=== PATIENT | female | born 1950 | race Caucasian/White ===

== ENCOUNTER 2016-11-08 12:50 | Inpatient (IN) | payer MEDICARE, OTHER ==
[~2016-11-08] VITALS: Ht 170.2 cm; Wt 75.0 kg
[~2016-11-08 12:50] MED LIST: ALL220TA PO; ALLE60TA PO; TAMS0.4C67 PO
[2016-11-08 12:55] VITALS: BP 117/57; PULSE 77; RESP 14; TEMP 98.2; O2SAT 96
--- NOTE | 2016-11-08 13:50 | PD ---
HPI Chief Complaint: GI Complaint Time Seen by Provider: 13:50 Travel History International Travel<30 days: No Contact w/Intl Traveler<30days: No Traveled to known affect area: No History of Present Illness HPI 66-year-old female with history of Crohn's disease, ileostomy in place for 30 years, presents to emergency department for evaluation of abdominal pain and cramping. She believes that she has an obstruction. Patient states she has had these in the past. She states last evening she began to have nausea and had abdominal cramping only. Her ileostomy stopped putting out stool last evening. She has however had some gas through the ileostomy. She has been nauseous throughout the day with 2 episodes of vomiting. Emesis is nonbloody and without coffee grounds. No fever or chills. No urinary symptoms. No chest tightness. No difficulty breathing. No other symptoms to report. PFSH Past Medical History Asthma: No Blood Disorders: No Anxiety: No Depression: No Heart Rhythm Problems: No Cancer: No Cardiovascular Problems: No High Cholesterol: No Chemotherapy: No Chest Pain: No Congestive Heart Failure: No COPD: No Diabetes: No Diminished Hearing: No Endocrine: No Gastrointestinal Disorders: Yes (crohns) Genitourinary: No Immune Disorder: No Musculoskeletal: No Neurologic: No Psychiatric: No Reproductive: No Respiratory: No Radiation Therapy: No Sleep Apnea: No Thyroid Disease: No ?: Not : 1 Para: 1 Past Surgical History Abdominal Surgery: Yes (colon removed, ileostomy) Section: Yes Genitourinary Surgery: Yes (kidney removed) Social History Alcohol Use: No Tobacco Use: No Substance Use: No Allergies-Medications (Allergen,Severity, Reaction): Coded Allergies: No Known Allergies (Unverified , 12/16/12) Reported Meds & Prescriptions Reported Meds & Active Scripts Active Reported Bhavya Allergy (Fexofenadine HCl) 60 Mg Tab 60 Mg PO PRN Review of Systems Except as stated in HPI: all other systems reviewed are Neg Physical Exam Narrative GENERAL: Well-nourished female patient, sitting in the chair, in no acute distress SKIN: Warm and dry. Multiple large scars on the abdomen HEAD: Atraumatic. Normocephalic. EYES: Pupils equal and round. No scleral icterus. No injection or drainage. ENT: No nasal bleeding or discharge. Mucous membranes pink and moist. NECK: Trachea midline. No JVD. CARDIOVASCULAR: Regular rate and rhythm. No murmur appreciated. RESPIRATORY: No accessory muscle use. Clear to auscultation. Breath sounds equal bilaterally. GASTROINTESTINAL: Abdomen soft, nondistended. Slight tenderness elicited in the epigastrium and right upper quadrant. There is a right sided ileostomy in place. No stool noted.. Hepatic and splenic margins not palpable. MUSCULOSKELETAL: No obvious deformities. No clubbing. No cyanosis. No edema. NEUROLOGICAL: Awake and alert. No obvious cranial nerve deficits. Motor grossly within normal limits. Normal speech. PSYCHIATRIC: Appropriate mood and affect; insight and judgment normal. Data Data Last Documented VS Vital Signs Date Time Temp Pulse Resp B/P Pulse Ox O2 Delivery O2 Flow Rate FiO2 11/08/16 19:09 70 16 117/70 99 Room Air 11/08/16 12:55 98.2 Orders Complete Blood Count With Diff (11/08/16 13:49) Comprehensive Metabolic Panel (11/08/16 13:49) Lipase (11/08/16 13:49) Prothrombin Time / Inr (Pt) (11/08/16 13:49) Act Partial Throm Time (Ptt) (11/08/16 13:49) Urinalysis - C+S If Indicated (11/08/16 13:49) Abdomen, Flat & Upright (11/08/16 ) Electrocardiogram (11/08/16 13:49) Urine Culture (11/08/16 13:55) Ct Abd/Pel W/O Iv Contrast (11/08/16 ) Ceftriaxone Inj (Rocephin Inj) (11/08/16 17:30) Ondansetron Inj (Zofran Inj) (11/08/16 17:30) Sodium Chlor 0.9% 1000 Ml Inj (Ns 1000 M (11/08/16 17:30) Labs Laboratory Tests Test 11/08/16 11/08/16 13:55 13:57 Urine Color YELLOW Urine Turbidity HAZY Urine pH 5.5 Urine Specific [place] 1.030 Urine Protein 30 mg/dL Urine Glucose (UA) NEG mg/dL Urine Ketones NEG mg/dL Urine Occult Blood NEG Urine Nitrite NEG Urine Bilirubin NEG Urine Urobilinogen LESS THAN 2.0 MG/DL Urine Leukocyte Esterase SMALL Urine RBC 2 /hpf Urine WBC 13 /hpf Urine Squamous Epithelial 2 /hpf Cells Urine Hyaline Casts 7 /lpf Urine Mucus FEW /lpf Microscopic Urinalysis Comment CULTURE INDICATED White Blood Count 7.3 TH/MM3 Red Blood Count 4.67 MIL/MM3 Hemoglobin 13.9 GM/DL Hematocrit 41.4 % Mean Corpuscular Volume 88.7 FL Mean Corpuscular Hemoglobin 29.7 PG Mean Corpuscular Hemoglobin 33.5 % Concent Red Cell Distribution Width 13.6 % Platelet Count 245 TH/MM3 Mean Platelet Volume 7.4 FL Neutrophils (%) (Auto) 80.0 % Lymphocytes (%) (Auto) 15.3 % Monocytes (%) (Auto) 4.5 % Eosinophils (%) (Auto) 0.0 % Basophils (%) (Auto) 0.2 % Neutrophils # (Auto) 5.8 TH/MM3 Lymphocytes # (Auto) 1.1 TH/MM3 Monocytes # (Auto) 0.3 TH/MM3 Eosinophils # (Auto) 0.0 TH/MM3 Basophils # (Auto) 0.0 TH/MM3 CBC Comment DIFF FINAL Differential Comment Prothrombin Time 10.3 SEC Prothromb Time International 0.9 RATIO Ratio Activated Partial 25.0 SEC Thromboplast Time Sodium Level 138 MEQ/L Potassium Level 3.9 MEQ/L Chloride Level 106 MEQ/L Carbon Dioxide Level 24.6 MEQ/L Anion Gap 7 MEQ/L Blood Urea Nitrogen 23 MG/DL Creatinine 1.42 MG/DL Estimat Glomerular Filtration 37 ML/MIN Rate Random Glucose 100 MG/DL Calcium Level 9.0 MG/DL Total Bilirubin 0.5 MG/DL Aspartate Amino Transf 32 U/L (AST/SGOT) Alanine Aminotransferase 38 U/L (ALT/SGPT) Alkaline Phosphatase 107 U/L Total Protein 8.0 GM/DL Albumin 4.0 GM/DL Lipase 206 U/L [facility] Medical Decision Making Medical Screen Exam Complete: Yes Emergency Medical Condition: Yes Medical Record Reviewed: Yes Differential Diagnosis Ileus versus obstruction versus constipation versus dehydration versus Crohn's Narrative Course 66-year-old female presents to the emergency department for evaluation. Patient appears without distress. Workup was initiated in triage. Once a medical bed becomes available, patient will be transferred and care assumed by the provider. Condition: Stable NasLeiaYuliyaalvaro ARCHIBALD Nov 08, 2016 13:50
[2016-11-08 14:33] LABS: BLOOD, URINE NEG (NEG); COMMENT (UR) CULTURE INDICATED; CULTURE IF INDICATED CULTURE INDICATED; GLUCOSE,URINE NEG (NEG); HYALINE CAST, URINE 7 /lpf (RARE); KETONE, URINE NEG (NEG); MUCUS URINE FEW /lpf (OCC); NITRITE,URINE NEG (NEG); PH, URINE 5.5 (5.0-8.5); SQUAMOUS EPITHELIAL CELL URINE 2 /hpf (0-5); URINE COLOR YELLOW (YELLW/STRAW)
[2016-11-08 14:34] LABS: AUTOMATED NEUTROPHIL # 5.8 TH/MM3 (1.8-7.7); BASOPHIL % 0.2 % (0.0-2.0); HEMATOCRIT 41.4 % (35.0-46.0); HEMO FLAGS DIFF FINAL; LYMPH % 15.3 % (9.0-44.0); LYMPHOCYTE # 1.1 TH/MM3 (1.0-4.8); MEAN CELL VOLUME 88.7 FL (80.0-100.0); MEAN CORPUSCULAR HEMOGLOBIN 29.7 PG (27.0-34.0); MEAN CORPUSCULAR HGB CONC 33.5 % (32.0-36.0); MONO % 4.5 % (0.0-8.0); PLATELET COUNT 245 TH/MM3 (150-450); RED BLOOD COUNT 4.67 MIL/MM3 (4.00-5.30); RED CELL DISTRIBUTION WIDTH 13.6 % (11.6-17.2); WHITE BLOOD COUNT 7.3 TH/MM3 (4.0-11.0)
[2016-11-08 14:48] LABS: INTERNATIONAL NORMALIZED RATIO 0.9 RATIO; PROTHROMBIN TIME - PATIENT 10.3 SEC (9.8-11.6)
[2016-11-08 14:49] LABS: ALT (GPT) 38 U/L (10-53); ANION GAP 7 MEQ/L (5-15); AST (GOT) 32 U/L (15-37); BICARBONATE 24.6 MEQ/L (21.0-32.0); BLOOD UREA NITROGEN 23 MG/DL (7-18); CHLORIDE 106 MEQ/L (98-107); GLOMERULAR FILTRATION RATE 37 ML/MIN (>89); POTASSIUM 3.9 MEQ/L (3.5-5.1); SODIUM (NA) 138 MEQ/L (136-145)
[2016-11-08 14:50] LABS: ALKALINE PHOSPHATASE 107 U/L (45-117); TOTAL BILIRUBIN ADULT 0.5 MG/DL (0.2-1.0)
--- NOTE | 2016-11-08 15:33 | RADRPT ---
EXAM DATE/TIME: 11/08/2016 14:47 [facility] COMPARISON: CT ABDOMEN & PELVIS W/O CONTRAST, August 23, 2015, 9:12. INDICATIONS : Abdomen pain and vomiting. MEDICAL HISTORY : Crohn's disease. SURGICAL HISTORY : Illeostomy, Right kidney removed 2003, colon removed. ENCOUNTER: Initial ACUITY: 1 day PAIN SCORE: 7/10 LOCATION: Bilateral Abdomen. FINDINGS: Supine and upright views of the abdomen demonstrate mildly dilated air-filled small bowel in the cent ral abdomen measuring up to 3.8 cm. However, there is a right lower quadrant ileostomy present. Uprig ht image demonstrates no free intraperitoneal air or definite air-fluid levels. There multiple clips in the left upper quadrant related to prior left kidney surgery. No organomegaly or abnormal calcific ations are seen. Visualized lung bases are clear and no acute osseous abnormality is identified. CONCLUSION: Mildly dilated small bowel in the central abdomen measuring up to 3.8 cm. This is typically an abnorm al finding. However, patients with chronic ileostomies can sometime have mildly distended small bowel . This could therefore represent a normal variant. Depending on the clinical setting consider followu p imaging to confirm stability or perform CT of the abdomen and pelvis for further evaluation. Alan Mackey MD on November 08, 2016 at 15:28 Board Certified Radiologist. This report was verified electronically.
[2016-11-08 17:21] VITALS: BP 120/72; PULSE 76; RESP 20; O2SAT 98
--- NOTE | 2016-11-08 17:22 | PD ---
HPI Chief Complaint: GI Complaint Time Seen by Provider: 17:16 Travel History International Travel<30 days: No Contact w/Intl Traveler<30days: No Traveled to known affect area: No History of Present Illness HPI 66yo F with PMH of crohn's disease with ileostomy 1983 presents to the ED with c /o abdominal pain since yesterday and NBNB vomiting today. Pt states abdominal pain is around the ileostomy and she had not had any bowel movement since yesterday. Had some flatus. 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 Denies any fever, chest pain, sob , urinary complaints or vaginal bleeding/discharge or weakness or numbness. PFSH Past Medical History Asthma: No Blood Disorders: No Anxiety: No Depression: No Heart Rhythm Problems: No Cancer: No Cardiovascular Problems: No High Cholesterol: No Chemotherapy: No Chest Pain: No Congestive Heart Failure: No COPD: No Diabetes: No Diminished Hearing: No Endocrine: No Gastrointestinal Disorders: Yes (crohns) Genitourinary: No Immune Disorder: No Musculoskeletal: No Neurologic: No Psychiatric: No Reproductive: No Respiratory: No Radiation Therapy: No Sleep Apnea: No Thyroid Disease: No ?: Not : 1 Para: 1 Past Surgical History Abdominal Surgery: Yes (colon removed, ileostomy) Section: Yes Genitourinary Surgery: Yes (kidney removed) Social History Alcohol Use: No Tobacco Use: No Substance Use: No Allergies-Medications (Allergen,Severity, Reaction): Coded Allergies: No Known Allergies (Unverified , 12/16/12) Reported Meds & Prescriptions Reported Meds & Active Scripts Active Reported Bhavya Allergy (Fexofenadine HCl) 60 Mg Tab 60 Mg PO PRN Review of Systems Except as stated in HPI: all other systems reviewed are Neg Physical Exam Narrative GENERAL: 66yo F not in distress. SKIN: Warm and dry. HEAD: Atraumatic. Normocephalic. EYES: Pupils equal and round. No scleral icterus. No injection or drainage. ENT: No nasal bleeding or discharge. Mucous membranes pink and moist. NECK: Trachea midline. No JVD. CARDIOVASCULAR: Regular rate and rhythm. No murmur appreciated. RESPIRATORY: No accessory muscle use. Clear to auscultation. Breath sounds equal bilaterally. GASTROINTESTINAL: Abdomen soft, Mild ttp around ileostomy bag. No rebound tenderness or guarding. MUSCULOSKELETAL: No obvious deformities. No clubbing. No cyanosis. No edema. NEUROLOGICAL: Awake and alert. No obvious cranial nerve deficits. Motor grossly within normal limits. Normal speech. PSYCHIATRIC: Appropriate mood and affect; insight and judgment normal. Data Data Last Documented VS Vital Signs Date Time Temp Pulse Resp B/P Pulse Ox O2 Delivery O2 Flow Rate FiO2 11/08/16 19:09 70 16 117/70 99 Room Air 11/08/16 12:55 98.2 Orders Complete Blood Count With Diff (11/08/16 13:49) Comprehensive Metabolic Panel (11/08/16 13:49) Lipase (11/08/16 13:49) Prothrombin Time / Inr (Pt) (11/08/16 13:49) Act Partial Throm Time (Ptt) (11/08/16 13:49) Urinalysis - C+S If Indicated (11/08/16 13:49) Abdomen, Flat & Upright (11/08/16 ) Electrocardiogram (11/08/16 13:49) Urine Culture (11/08/16 13:55) Ct Abd/Pel W/O Iv Contrast (11/08/16 ) Ceftriaxone Inj (Rocephin Inj) (11/08/16 17:30) Ondansetron Inj (Zofran Inj) (11/08/16 17:30) Sodium Chlor 0.9% 1000 Ml Inj (Ns 1000 M (11/08/16 17:30) Sodium Chlor 0.9% 1000 Ml Inj (Ns 1000 M (11/08/16 19:45) Abdomen, Kub Only (11/09/16 06:00) Consult Gastroenterology (11/08/16 ) Consult General Surgery (11/08/16 ) Labs Laboratory Tests Test 11/08/16 11/08/16 13:55 13:57 Urine Color YELLOW Urine Turbidity HAZY Urine pH 5.5 Urine Specific [place] 1.030 Urine Protein 30 mg/dL Urine Glucose (UA) NEG mg/dL Urine Ketones NEG mg/dL Urine Occult Blood NEG Urine Nitrite NEG Urine Bilirubin NEG Urine Urobilinogen LESS THAN 2.0 MG/DL Urine Leukocyte Esterase SMALL Urine RBC 2 /hpf Urine WBC 13 /hpf Urine Squamous Epithelial 2 /hpf Cells Urine Hyaline Casts 7 /lpf Urine Mucus FEW /lpf Microscopic Urinalysis Comment CULTURE INDICATED White Blood Count 7.3 TH/MM3 Red Blood Count 4.67 MIL/MM3 Hemoglobin 13.9 GM/DL Hematocrit 41.4 % Mean Corpuscular Volume 88.7 FL Mean Corpuscular Hemoglobin 29.7 PG Mean Corpuscular Hemoglobin 33.5 % Concent Red Cell Distribution Width 13.6 % Platelet Count 245 TH/MM3 Mean Platelet Volume 7.4 FL Neutrophils (%) (Auto) 80.0 % Lymphocytes (%) (Auto) 15.3 % Monocytes (%) (Auto) 4.5 % Eosinophils (%) (Auto) 0.0 % Basophils (%) (Auto) 0.2 % Neutrophils # (Auto) 5.8 TH/MM3 Lymphocytes # (Auto) 1.1 TH/MM3 Monocytes # (Auto) 0.3 TH/MM3 Eosinophils # (Auto) 0.0 TH/MM3 Basophils # (Auto) 0.0 TH/MM3 CBC Comment DIFF FINAL Differential Comment Prothrombin Time 10.3 SEC Prothromb Time International 0.9 RATIO Ratio Activated Partial 25.0 SEC Thromboplast Time Sodium Level 138 MEQ/L Potassium Level 3.9 MEQ/L Chloride Level 106 MEQ/L Carbon Dioxide Level 24.6 MEQ/L Anion Gap 7 MEQ/L Blood Urea Nitrogen 23 MG/DL Creatinine 1.42 MG/DL Estimat Glomerular Filtration 37 ML/MIN Rate Random Glucose 100 MG/DL Calcium Level 9.0 MG/DL Total Bilirubin 0.5 MG/DL Aspartate Amino Transf 32 U/L (AST/SGOT) Alanine Aminotransferase 38 U/L (ALT/SGPT) Alkaline Phosphatase 107 U/L Total Protein 8.0 GM/DL Albumin 4.0 GM/DL Lipase 206 U/L [facility] Medical Decision Making Medical Screen Exam Complete: Yes Emergency Medical Condition: Yes Differential Diagnosis Obstruction vs. colitis vs. ileus vs. fistula Narrative Course 66yo F with PMH of crohn's disease s/p ileostomy 1984 here with abdominal pain near right mid abdomen since last night. Pt has been feeling nauseous and had NBNB vomiting today. Last episode of vomit is 10am today. Last time she drank was around 12pm when she had a few sips of water. Pt had not had bowel movement in her bag since last night but has been having flatus. Labs reviewed , no leukocytosis. BUN/creatinine elevated at 23/1.42. Pt given NS IVF and zofran 4mg IV. UA showed small leukocyte and pt given ceftriaxone 1mg IV. Xray abdomen showed mildly dilated small bowel in central abdomen measuring 3.8cm. Patients with chronic ileostomies can have mildly distended small bowel so recommended CTa/p for further evaluation. CTa/p showed diffusely and mildly dilated small bowel extending to level of ostomy. No obstructing mass or lesion observed. Cholelithiasis with distended gallbladder but no gallbladder wall thickening or pericholecystic fluid. Dr. Hinojosa (surgery) evaluated the patient and recommended admission to medicine service with consult to GI and Surgery. Pt is to be NPO. Diagnosis Primary Impression: Small bowel obstruction Admitting Information Admitting Physician Requests: Admit Condition: Stable ValleJeaneth DO Nov 08, 2016 17:22
[2016-11-08] MEDS ORDERED: ALLE60TA PO (17:23)
[2016-11-08] MEDS ORDERED: ONDANSETRON HCL 4 MG/2 ML VIAL IV PUSH ONE (17:30)
[2016-11-08] MEDS ORDERED: cefTRIAXone INJ 1,000 MG in SODIUM CHLORIDE 0.9% INJ 100 ML IV ONE (17:30)
[2016-11-08] MEDS ORDERED: SODIUM CHLOR 0.9% 1000 ML INJ 1,000 ML IV ONE (17:30)
[2016-11-08 18:15] VITALS: BP 121/63; PULSE 70; RESP 18; O2SAT 97
--- NOTE | 2016-11-08 19:08 | RADRPT ---
EXAM DATE/TIME: 11/08/2016 18:35 [facility] COMPARISON: CT ABDOMEN & PELVIS W/O CONTRAST, August 23, 2015, 9:12. INDICATIONS : Abdomen pain with nausea and vomiting. Blockage of ileostomy. ORAL CONTRAST: No oral contrast ingested. RADIATION DOSE: 13.20 CTDIvol (mGy) MEDICAL HISTORY : Crohn's disease. SURGICAL HISTORY : Nephrectomy, left. section.Ileostomy ENCOUNTER: Initial ACUITY: 1 day PAIN SCALE: 6/10 LOCATION: Bilateral abdomen TECHNIQUE: Volumetric scanning of the abdomen and pelvis was performed. Using automated exposure control and ad justment of the mA and/or kV according to patient size, radiation dose was kept as low as reasonably achievable to obtain optimal diagnostic quality images. FINDINGS: LOWER LUNGS: The visualized lower lungs are clear. A tiny hiatal hernia. LIVER: Homogeneous density without lesion. There is no dilation of the biliary tree. Multiple small calcifi ed gallstones are seen layering within a well-distended gallbladder. No gallbladder wall thickening o r pericholecystic fluid. SPLEEN: Normal size without lesion. PANCREAS: Within normal limits. KIDNEYS: The left kidney is surgically absent. A 1 mm nonobstructing stone is seen involving the right kidney. ADRENAL GLANDS: Within normal limits. VASCULAR: There is no aortic aneurysm. BOWEL/MESENTERY: There has been complete colectomy with low anterior resection. A right lower quadrant ileostomy is no braydon. The small bowel is mildly and diffusely dilated. This extends to the level of the ostomy. No foc al transition point observed. No free air or free fluid. No obstructing mass or lesion. ABDOMINAL WALL: Within normal limits. RETROPERITONEUM: There is no lymphadenopathy. BLADDER: No wall thickening or mass. REPRODUCTIVE: Within normal limits. INGUINAL: There is no lymphadenopathy or hernia. MUSCULOSKELETAL: Within normal limits for patient age. CONCLUSION: 1. Prior complete colectomy and low anterior resection. 2. Diffusely and mildly dilated small bowel extending to the level of the ostomy. No obstructing mass or lesion observed. 3. Tiny hiatal hernia. 4. Cholelithiasis with a distended gallbladder but no gallbladder wall thickening or pericholecystic fluid. The gallbladder distention could relate to an n.p.o. status. 5. 1 mm nonobstructing right renal calculus. 6. Prior left nephrectomy. Jefry Whipple Jr., MD on November 08, 2016 at 19:01 Board Certified Radiologist. This report was verified electronically.
[2016-11-08 19:09] VITALS: BP 117/70; PULSE 70; RESP 16; O2SAT 99
[2016-11-08] MEDS ORDERED: SODIUM CHLOR 0.9% 1000 ML INJ 1,000 ML IV SCH (19:45)
[2016-11-08] MEDS ORDERED: NALOXONE HCL 0.4 MG/ML AMP IV PRN (20:00)
[2016-11-08] MEDS ORDERED: ONDANSETRON HCL 4 MG/2 ML VIAL IVP PRN (20:00)
[2016-11-08] MEDS ORDERED: METOCLOPRAMIDE HCL 10 MG/2 ML VIAL IV PUSH PRN (20:00)
[2016-11-08] MEDS ORDERED: SODIUM CHLORIDE 0.9% FLUSH 5 ML FLUSH FLUSH PRN (20:00)
[2016-11-08] MEDS: SODIUM CHLOR 0.9% 1000 ML INJ 1,000 ML IV SCH (20:18)
[2016-11-08] MEDS: SODIUM CHLORIDE 0.9% FLUSH 5 ML FLUSH FLUSH SCH (20:52)
[2016-11-08 21:03] VITALS: BP 103/55; PULSE 67; RESP 16; O2SAT 98
--- NOTE | 2016-11-08 21:21 | MB ---
cc: JUAN CARLOS ALBRIGHT M.D., ANNIE DO DATE OF CONSULTATION: 11/08/2016 REASON FOR CONSULTATION: Bowel obstruction. HISTORY OF PRESENT ILLNESS The patient is a 66-year-old female with a history of Crohn's disease who underwent a rather unconventional treatment with ileostomy followed by total colectomy two years later even though she had no active disease in her colon, according to the patient. The patient had apparently had a diverting ileostomy at the time with an end-ileostomy and then underwent total colectomy when she had peritonitis. It is not clear if she got the peritonitis from her colonic problem, further active Crohn's disease, or some other problem. The patient had an episode of bowel obstruction about three years ago not requiring surgical intervention. The patient reports that she had ileostomy that stopped putting out yesterday evening, had nausea and abdominal cramping. She did have some vomiting this morning but this stopped after 10:30 a.m. The patient did have intubation of the ileostomy in 2002 in preparation for living related donor, kidney transplant as the donor, and was found to have some active Crohn's disease in her ileum. She has elected not to undergo any treatment as she was concerned about side effects from the drugs. She also had expressed concern since she only has one kidney. 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 PAST MEDICAL HISTORY: No history of asthma, anxiety, depression, cardiac problems, congestive failure, COPD, musculoskeletal, neurologic or psychiatric problems. No history of sleep apnea. PAST SURGICAL HISTORY: 1. . 2. Ileostomy. 3. Total colectomy. 4. Nephrectomy. SOCIAL HISTORY: She does not drink, smoke or use other substances. ALLERGIES: No known allergies. MEDICATIONS: 1. Bhavya 50 milligrams p.o. p.r.n. REVIEW OF SYSTEMS: Otherwise negative except as indicated above. PHYSICAL EXAMINATION: Reveals a female in no acute distress. VITAL SIGNS: Blood pressure 121/63, pulse 70, respiratory rate 18, 97% sat on room air, temperature 98.2. HEENT: Sclerae anicteric. Pupils reactive. Chest: Clear to auscultation. Cardiac exam reveals regular rate and rhythm. Abdomen is soft and nontender. There is a well-healed midline scar. There is an ileostomy in the right lower quadrant. There is stool in the ileostomy. The undersigned intubated the ileostomy with a finger and K-Y jelly. The fascial opening is extremely tight but I was able to place an index finger below the fascia. There is some stool in the more proximal ileum, but there did not appear to be any impaction. Pulses are present. Extremities: The patient is able to move all four extremities. Neurologic: Exam is nonfocal. LABORATORY VALUES: WBC 7.3, hemoglobin 13.9, hematocrit 41.4. BUN and creatinine are 23 and 1.4 with GFR of 37. The patient has a slight left shift with 80% neutrophils. Urinalysis demonstrates high urine protein and culture is indicated with 13 WBCs. The patient did report when she had Crohn's disease previously she has what sounded like a colovesical fistula. She had constant urine infections. IMAGING STUDIES: CT scan demonstrates gallstones with a distended gallbladder. No gallbladder wall thickening and small bowel mildly and diffusely dilated that extends to the level of the ostomy, there is no focal transition point noted. ASSESSMENT Nausea, vomiting and ileostomy, this is currently functioning. No evidence of small bowel obstruction at this time. I have concern that the patient may have some active Crohn disease that is not being treated. Would recommend medical management, IV fluids, bowel rest for today and would start a diet tomorrow if she does not have any further vomiting. Will follow peripherally as it does not appear that she will need any surgery at this time. Thank you, Dr. Valle, for asking us to see this individual. MD KAREN Stafford/SOPHIE /8:08 PM /9:08 PM SELENA
[2016-11-09] VITALS (7 sets, daily range): BP systolic 95–125; BP diastolic 49–76; PULSE 61–81; RESP 17–20; TEMP 97.8–99.4; O2SAT 94–97
--- NOTE | 2016-11-09 04:48 | HHI.HP ---
[facility] Service [facility] Primary Care Physician Hillary Diaz MD Admission Diagnosis SBO Diagnoses: (1) Small bowel obstruction (2) Crohn's disease Chief Complaint: Ileostomy not working Travel History International Travel<30 Days: No Contact w/Intl Traveler <30 Da: No Traveled to Known Affected Are: No History of Present Illness Mrs. Reich is a 66 year old female with a past medical history of Crohns disease with ileostomy in 1983 and donor nephrectomy presented to the ER on 11/08 complaining of abdominal pain 1 day with vomiting. The patient relates her abdominal pain as occurring around the ileostomy and feeling similar to her prior bowel obstruction. She was seen by Dr. Hinojosa who does not recommend surgical intervention and opines that she does not have a small bowel obstruction. CT abdomen and pelvis without IV contrast shows prior complete colectomy and low anterior resection. Diffusely and mildly dilated small bowel extended to the level of the ostomy. No obstructing mass or lesion observed. Tiny hiatal hernia. Cholelithiasis with a distended gallbladder but no gallbladder wall thickening or pericholecystic fluid. Gallbladder distention might relate to nothing by mouth status. 1 mm nonobstructing right renal calculus. Prior left nephrectomy. CBC is unremarkable. BUN elevated at 23, creatinine elevated at 1.42, estimated GFR 37. Kidney function similar to hospital visit on 09/04/15. Urinalysis slightly abnormal with culture indicated. The patient is seen in her hospital room where she reports that nothing was coming out of her ileostomy stoma for 24 hours. She states she was having some severe pain but denies any vomiting and reports symptoms have resolved and ostomy is currently working with good output. She denies any fever, syncope, chest pain, shortness of breath, blood in stool, dark stool, hematuria, or dysuria. Her last hospitalization for Crohn's disease was in 1985. She denies any history of hypertension, diabetes mellitus, heart problems, breathing problems, liver or kidney problems, seizures, thyroid dysfunction, or cancer. She denies any problems with blood clots such as DVT, PE, or CVA. . Review of Systems Constitutional: DENIES: Fever, Chills Respiratory: DENIES: Cough, Shortness of breath Cardiovascular: DENIES: Chest pain, Palpitations Gastrointestinal: COMPLAINS OF: Abdominal pain, Constipation, DENIES: Black stools, Bloody stools, Nausea, Vomiting Genitourinary: DENIES: Hematuria, Dysuria Neurologic: DENIES: Seizures Past Family Social History Past Medical History Small bowel obstruction 3 years ago Crohns disease with ileostomy in 1983 Donor left nephrectomy 2003 . Past Surgical History Colectomy with Ileostomy in 1983 Donor left nephrectomy 2004 section . Reported Medications Reported Meds & Active Scripts Active Reported Bhavya Allergy (Fexofenadine HCl) 60 Mg Tab 60 Mg PO PRN . Allergies: Coded Allergies: No Known Allergies (Unverified , 12/16/12) Active Ordered Medications Current Medications Ceftriaxone Sodium/Sodium Chloride (Rocephin Inj/NS Inj) 100 ml @ 200 mls/hr ONCE ONCE IV Last administered on 11/08/16 17:34; Start 11/08/16 at 17:30; Stop 11/08/16 at 17:59; Status DC Ondansetron HCl 4 mg 4 mg ONCE ONCE IV PUSH Last administered on 11/08/16 17: 34; Start 11/08/16 at 17:30; Stop 11/08/16 at 17:31; Status DC Sodium Chloride 1,000 ml @ 999 mls/hr BOLUS ONCE IV Last administered on 11/08 17:34; Start 11/08/16 at 17:30; Stop 11/08/16 at 18:30; Status DC Sodium Chloride 1,000 ml @ 125 mls/hr Q8H IV Last administered on 11/08/16 19 :45; Start 11/08/16 at 19:45; Stop 11/08/16 at 19:56; Status DC Sodium Chloride (NS 1000 ml Inj) 1,000 ml @ 100 mls/hr Q10H IV Last administered on 11/08/16 20:18; Start 11/08/16 at 19:53 IV Flush (NS Flush) 2 ml UNSCH PRN FLUSH FLUSH AFTER USING IV ACCESS; Start at 20:00 IV Flush (NS Flush) 2 ml BID FLUSH ; Start 11/08/16 at 21:00 Ondansetron HCl (Zofran Inj) 4 mg Q6H PRN IVP NAUSEA OR VOMITING; Start at 20:00 Metoclopramide HCl (Reglan Inj) 5 mg Q6H PRN IV PUSH NAUSEA OR VOMITING Last administered on 11/08/16t 20:25; Start 11/08/16 at 20:00 Naloxone HCl (Narcan Inj) 0.4 mg UNSCH PRN IV SEE LABEL COMMENTS; Start at 20:00 . Family History Mother with history of COPD age 82, father age 86, cause uncertain Mother, brother, and sister all had irregular heart rhythms . 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 Physical Exam Vital Signs Vital Signs Date Time Temp Pulse Resp B/P Pulse Ox O2 Delivery O2 Flow Rate FiO2 11/09/16 04:00 98.4 74 18 110/54 96 11/09/16 00:00 99.4 81 17 125/59 96 11/08/16 21:03 67 16 103/55 98 Room Air 11/08/16 19:09 70 16 117/70 99 Room Air 11/08/16 18:15 70 18 121/63 97 Room Air 11/08/16 17:21 76 20 120/72 98 Room Air 11/08/16 12:55 98.2 77 14 117/57 96 Room Air Physical Exam GENERAL: This is a well-nourished, well-developed patient, in no apparent distress. SKIN: No rashes, ecchymoses or lesions. Cool and dry. HEAD: Atraumatic. Normocephalic. EYES: No scleral icterus. No injection or drainage. ENT: Nose without bleeding, purulent drainage. NECK: Trachea midline. No JVD or lymphadenopathy. CARDIOVASCULAR: Regular rate and rhythm without murmurs, gallops, or rubs. RESPIRATORY: Clear to auscultation. Breath sounds equal bilaterally. No wheezes , rales, or rhonchi. GASTROINTESTINAL: Abdomen soft, non-tender, nondistended. No guarding. Right mid abdomen with ileostomy bag - not clear - unable to visualize stool in bag. MUSCULOSKELETAL: Extremities without clubbing, cyanosis, or edema. No calf tenderness. NEUROLOGICAL: Awake and alert. Motor and sensory grossly within normal limits. Normal speech. . . Laboratory Laboratory Tests Test 11/08/16 11/08/16 13:55 13:57 Urine Color YELLOW Urine Turbidity HAZY Urine pH 5.5 Urine Specific [place] 1.030 Urine Protein 30 Urine Glucose (UA) NEG Urine Ketones NEG Urine Occult Blood NEG Urine Nitrite NEG Urine Bilirubin NEG Urine Urobilinogen LESS THAN 2.0 Urine Leukocyte Esterase SMALL Urine RBC 2 Urine WBC 13 Urine Squamous Epithelial 2 Cells Urine Hyaline Casts 7 Urine Mucus FEW Microscopic Urinalysis Comment CULTURE INDICATED White Blood Count 7.3 Red Blood Count 4.67 Hemoglobin 13.9 Hematocrit 41.4 Mean Corpuscular Volume 88.7 Mean Corpuscular Hemoglobin 29.7 Mean Corpuscular Hemoglobin 33.5 Concent Red Cell Distribution Width 13.6 Platelet Count 245 Mean Platelet Volume 7.4 Neutrophils (%) (Auto) 80.0 Lymphocytes (%) (Auto) 15.3 Monocytes (%) (Auto) 4.5 Eosinophils (%) (Auto) 0.0 Basophils (%) (Auto) 0.2 Neutrophils # (Auto) 5.8 Lymphocytes # (Auto) 1.1 Monocytes # (Auto) 0.3 Eosinophils # (Auto) 0.0 Basophils # (Auto) 0.0 CBC Comment DIFF FINAL Differential Comment Prothrombin Time 10.3 Prothromb Time International 0.9 Ratio Activated Partial 25.0 Thromboplast Time Sodium Level 138 Potassium Level 3.9 Chloride Level 106 Carbon Dioxide Level 24.6 Anion Gap 7 Blood Urea Nitrogen 23 Creatinine 1.42 Estimat Glomerular Filtration 37 Rate Random Glucose 100 Calcium Level 9.0 Total Bilirubin 0.5 Aspartate Amino Transf 32 (AST/SGOT) Alanine Aminotransferase 38 (ALT/SGPT) Alkaline Phosphatase 107 Total Protein 8.0 Albumin 4.0 Lipase 206 Date/Time Procedure Status Source Growth 11/08/16 13:55 Urine Culture Received Urine Clean Catch Pending Result Diagram: 11/08/16 1357 11/08/16 1357 Imaging Last Impressions Abdomen/Pelvis CT 11/08/16 0000 Signed Impressions: Service Date/Time: Tuesday, November 08, 2016 18:35 - CONCLUSION: 1. Prior complete colectomy and low anterior resection. 2. Diffusely and mildly dilated small bowel extending to the level of the ostomy. No obstructing mass or lesion observed. 3. Tiny hiatal hernia. 4. Cholelithiasis with a distended gallbladder but no gallbladder wall thickening or pericholecystic fluid. The gallbladder distention could relate to an n.p.o. status. 5. 1 mm nonobstructing right renal calculus. 6. Prior left nephrectomy. Jefry Whipple Jr., MD Abdomen X-Ray 11/08/16 0000 Signed Impressions: Service Date/Time: Tuesday, November 08, 2016 14:47 - CONCLUSION: Mildly dilated small bowel in the central abdomen measuring up to 3.8 cm. This is typically an abnormal finding. However, patients with chronic ileostomies can sometime have mildly distended small bowel. This could therefore represent a normal variant. Depending on the clinical setting consider followup imaging to confirm stability or perform CT of the abdomen and pelvis for further evaluation. Alan Mackey MD . Assessment and Plan Problem List: (1) Abdominal pain ICD Code: R10.9 Status: Acute (2) Small bowel obstruction ICD Code: K56.69 Status: Acute (3) Crohn's disease ICD Code: K50.90 Status: Chronic (4) Solitary right kidney ICD Code: Q60.2 Status: Chronic (5) Impaired renal function ICD Code: N28.9 Status: Chronic Assessment and Plan Mrs. Reich is a 66 year old female with a past medical history of Crohns disease with ileostomy in 1983 and donor nephrectomy presented to the ER on 11/08 complaining of abdominal pain 1 day with vomiting. Testing was concerning for SBO. Abdominal pain: SBO vs untreated Crohns disease - Patient was evaluated by Dr. Hinojosa who indicates there is no evidence of small bowel obstruction at this time but he expresses concern that there may be some active Crohns disease that is not being treated. - Consult GI - Nothing by mouth - IV fluids normal saline at 100 cc per hour - Bowel rest and now with clear liquid diet start in a.m. - VS q4h Impaired renal function related to prior donor nephrectomy - Recheck BMP in a.m. - Follow trends in renal indices - Avoid nephrotoxins DVT prophylaxis - SCDs Written by Mayelin Gamble, acting as scribe for Dr. Owens on 11/09/16 at 03:30 .All or portions of this note were transcribed by scribe [Maeylin Gamble]. I, Dr. Wilrfido Owens personally performed the history, physical exam, and medical decision making; and confirmed the accuracy of the information in the transcribed note. Authenticated by Dr. Wilfrido Owens on 11/09/16 at 0330 Discussed Condition With ER physician and patient . Physician Certification 2 Midnight Certification Type: Admission for Inpatient Services Order for Inpatient Services The services are ordered in accordance with Medicare regulations or non- Medicare payer requirements, as applicable. In the case of services not specified as inpatient-only, they are appropriately provided as inpatient services in accordance with the 2-midnight benchmark. Estimated LOS (days): 3 days is the estimated time the patient will need to remain in the hospital, assuming treatment plan goals are met and no additional complications. Post-Hospital Plan: Home Mayelin Gamble Nov 09, 2016 04:48 Wilfrido Owens MD Dec 21, 2016 07:30
[2016-11-09 06:47] LABS: AUTOMATED NEUTROPHIL # 2.4 TH/MM3 (1.8-7.7); BASOPHIL % 0.4 % (0.0-2.0); EOSINOPHIL # 0.1 TH/MM3 (0-0.4); EOSINOPHIL % 2.3 % (0.0-4.0); HEMATOCRIT 35.2 % (35.0-46.0); HEMO FLAGS DIFF FINAL; LYMPH % 26.9 % (9.0-44.0); LYMPHOCYTE # 1.1 TH/MM3 (1.0-4.8); MEAN CELL VOLUME 88.9 FL (80.0-100.0); MEAN CORPUSCULAR HEMOGLOBIN 29.4 PG (27.0-34.0); MEAN CORPUSCULAR HGB CONC 33.1 % (32.0-36.0); MONO % 9.7 % (0.0-8.0); NEUT % 60.7 % (16.0-70.0); PLATELET COUNT 209 TH/MM3 (150-450); RED BLOOD COUNT 3.96 MIL/MM3 (4.00-5.30); RED CELL DISTRIBUTION WIDTH 13.3 % (11.6-17.2); WHITE BLOOD COUNT 3.9 TH/MM3 (4.0-11.0)
[2016-11-09 07:25] LABS: BICARBONATE 24.1 MEQ/L (21.0-32.0); POTASSIUM 3.7 MEQ/L (3.5-5.1)
--- NOTE | 2016-11-09 08:27 | RADRPT ---
EXAM DATE/TIME: 11/09/2016 08:05 [facility] COMPARISON: CT ABDOMEN & PELVIS W/O CONTRAST, November 08, 2016, 18:35. INDICATIONS : Partial small bowel obstruction. MEDICAL HISTORY : Crohn's disease SURGICAL HISTORY : Nephrectomy, left. section. Ileostomy ENCOUNTER: Subsequent ACUITY: 2 days PAIN SCORE: 0/10 LOCATION: entire abdomen FINDINGS: There is no radiographic contrast in the abdomen. A colostomy is seen in the right lower quadrant. Surgical clips are seen in the epigastrium. CONCLUSION: There is no radiographic contrast evident. Adria Hodgson MD FACR on November 09, 2016 at 8:15 Board Certified Radiologist. This report was verified electronically.
[2016-11-09] MEDS: SODIUM CHLORIDE 0.9% FLUSH 5 ML FLUSH FLUSH SCH ×2 (09:00→20:33)
[2016-11-09] MEDS: ACETAMINOPHEN 325 MG TAB PO PRN ×2 (10:52→22:14)
[2016-11-09] MEDS ORDERED: LACTULOSE SYRUP 20 GM/30 ML CUP PO ONE ×2 (11:00→21:00)
--- NOTE | 2016-11-09 13:10 | PD.CONS ---
HPI History of Present Illness This is a 66 year old female patient with a long history of Crohn's disease. She reports that she was originally diagnosed in the early 1970s with regional enteritis and later told that she had Crohn's. She reports many years ago she was treated with steroids sulfasalazine and underwent a complete colectomy with ileostomy back in 1983. She reports that prior to that she was having a lot of issues with abscesses and fistulas and required multiple abdominal surgeries. She reports that after she had her colectomy, she was doing very well and has not been on any medications for quite some time. She is not followed by a pipe changer. She does report that she does tend to have intermittent "bowel obstructions" with nausea, vomiting, abdominal pain, and decreased output from her ileostomy. She reports that these are usually very mild and resolve on their own and does not require medical treatment. She reports that she last was seen by a pipe changer back in 2003 prior to donating her kidney to her . She reports that she had an ileoscopy at that time and was told that she had active disease with ulcerations and her small bowel. 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 This latest episode of symptoms began about 3 days ago. She reports that she started having nausea and vomiting with mid abdominal cramping on Monday. She reports that she was unable to keep anything down and that she noticed she was not having any output from her ileostomy. She denies any fevers or chills. She denies any weight loss. She has not seen any blood mixed within her stools. Of note she did have a bowel movement yesterday and she reports that this was her normal consistency. She is not having any abdominal distention. She is now longer having any nausea or vomiting or abdominal pain. She came to the ER and was evaluated with a CT scan without IV contrast of the abdomen and pelvis and this revealed a prior complete colectomy and low anterior resection, diffusely and mildly dilated small bowel extending to the level of the ostomy. No obstructing mass or lesion is observed, tiny hiatal hernia, cholelithiasis with a distended gallbladder but no gallbladder wall thickening or pericholecystic fluid, gallbladder distention could relates an nothing by mouth status, 1 mm nonobstructing right renal calculus, prior left nephrectomy. She did not have any leukocytosis. She was evaluated by general surgery and they did not feel that she had a bowel obstruction. He recommended GI follow-up for evaluation of Crohn's disease. (Marilyn Garcia) [facility] Past Medical History Small bowel obstruction 3 years ago Crohns disease with ileostomy in 1983 Donor left nephrectomy 2003 Past Surgical History Colectomy with Ileostomy in 1983 Donor left nephrectomy 2004 section Colonoscopy Ileoscopy (Marilyn Garcia) Coded Allergies: No Known Allergies (Unverified , 12/16/12) Medications Allergies Coded Allergies Type Severity Reaction Last Updated Verified No Known Allergies 12/16/12 No Active Scripts Medications Dose Route/Sig Days Date Category Bhavya Allergy (Fexofenadine HCl) 60 Mg Tab 60 Mg PO PRN 11/08/16 Reported Family History Mother with history of COPD age 82, father age 86, cause uncertain Mother, brother, and sister all had irregular heart rhythms . 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 (Marilyn Garcia) Review of Systems Constitutional: COMPLAINS OF: Fatigue, DENIES: Weight loss, Change in appetite Respiratory: DENIES: Cough, Shortness of breath Cardiovascular: DENIES: Chest pain Gastrointestinal: COMPLAINS OF: Abdominal pain, Constipation, Nausea, Vomiting , DENIES: Black stools, Bloody stools, Swelling of Abdomen, Hematemesis Musculoskeletal: DENIES: Joint pain Integumentary: DENIES: Abnormal pigmentation Hematologic/lymphatic: DENIES: Bruising Neurologic: DENIES: Headache Psychiatric: DENIES: Confusion (Marilyn Garcia) GI Exam Vitals I&O Vital Signs Date Time Temp Pulse Resp B/P Pulse Ox O2 Delivery O2 Flow Rate FiO2 11/09/16 11:52 98.5 67 20 108/58 96 11/09/16 08:00 97.9 62 18 95/49 94 11/09/16 04:00 98.4 74 18 110/54 96 11/09/16 00:00 99.4 81 17 125/59 96 11/08/16 21:03 67 16 103/55 98 Room Air 11/08/16 19:09 70 16 117/70 99 Room Air 11/08/16 18:15 70 18 121/63 97 Room Air 11/08/16 17:21 76 20 120/72 98 Room Air I/O 11/08/16 11/08/16 11/08/16 11/09/16 11/09/16 11/09/16 07:00 15:00 23:00 07:00 15:00 23:00 Intake Total 0 ml 896 ml 0 ml Output Total 300 ml Balance 0 ml 596 ml 0 ml Intake Oral 0 ml 0 ml 0 ml IV Total 896 ml Output Urine Total 300 ml # Voids 1 # Bowel Movements 0 0 Imaging Last Impressions Abdomen/Pelvis CT 11/08/16 0000 Signed Impressions: Service Date/Time: Tuesday, November 08, 2016 18:35 - CONCLUSION: 1. Prior complete colectomy and low anterior resection. 2. Diffusely and mildly dilated small bowel extending to the level of the ostomy. No obstructing mass or lesion observed. 3. Tiny hiatal hernia. 4. Cholelithiasis with a distended gallbladder but no gallbladder wall thickening or pericholecystic fluid. The gallbladder distention could relate to an n.p.o. status. 5. 1 mm nonobstructing right renal calculus. 6. Prior left nephrectomy. Jefry Whipple Jr., MD Abdomen X-Ray 11/08/16 0000 Signed Impressions: Service Date/Time: Tuesday, November 08, 2016 14:47 - CONCLUSION: Mildly dilated small bowel in the central abdomen measuring up to 3.8 cm. This is typically an abnormal finding. However, patients with chronic ileostomies can sometime have mildly distended small bowel. This could therefore represent a normal variant. Depending on the clinical setting consider followup imaging to confirm stability or perform CT of the abdomen and pelvis for further evaluation. Alan Mackey MD Laboratory Test 11/08/16 11/08/16 11/09/16 13:55 13:57 05:10 Urine Color YELLOW Urine Turbidity HAZY Urine pH 5.5 Urine Specific [place] 1.030 Urine Protein 30 mg/dL Urine Glucose (UA) NEG mg/dL Urine Ketones NEG mg/dL Urine Occult Blood NEG Urine Nitrite NEG Urine Bilirubin NEG Urine Urobilinogen LESS THAN 2.0 MG/DL Urine Leukocyte Esterase SMALL Urine RBC 2 /hpf Urine WBC 13 /hpf Urine Squamous Epithelial 2 /hpf Cells Urine Hyaline Casts 7 /lpf Urine Mucus FEW /lpf Microscopic Urinalysis Comment CULTURE INDICATED White Blood Count 7.3 TH/MM3 3.9 TH/MM3 Red Blood Count 4.67 MIL/MM3 3.96 MIL/MM3 Hemoglobin 13.9 GM/DL 11.6 GM/DL Hematocrit 41.4 % 35.2 % Mean Corpuscular Volume 88.7 FL 88.9 FL Mean Corpuscular Hemoglobin 29.7 PG 29.4 PG Mean Corpuscular Hemoglobin 33.5 % 33.1 % Concent Red Cell Distribution Width 13.6 % 13.3 % Platelet Count 245 TH/MM3 209 TH/MM3 Mean Platelet Volume 7.4 FL 7.5 FL Neutrophils (%) (Auto) 80.0 % 60.7 % Lymphocytes (%) (Auto) 15.3 % 26.9 % Monocytes (%) (Auto) 4.5 % 9.7 % Eosinophils (%) (Auto) 0.0 % 2.3 % Basophils (%) (Auto) 0.2 % 0.4 % Neutrophils # (Auto) 5.8 TH/MM3 2.4 TH/MM3 Lymphocytes # (Auto) 1.1 TH/MM3 1.1 TH/MM3 Monocytes # (Auto) 0.3 TH/MM3 0.4 TH/MM3 Eosinophils # (Auto) 0.0 TH/MM3 0.1 TH/MM3 Basophils # (Auto) 0.0 TH/MM3 0.0 TH/MM3 CBC Comment DIFF FINAL DIFF FINAL Differential Comment Prothrombin Time 10.3 SEC Prothromb Time International 0.9 RATIO Ratio Activated Partial 25.0 SEC Thromboplast Time Sodium Level 138 MEQ/L 143 MEQ/L Potassium Level 3.9 MEQ/L 3.7 MEQ/L Chloride Level 106 MEQ/L 112 MEQ/L Carbon Dioxide Level 24.6 MEQ/L 24.1 MEQ/L Anion Gap 7 MEQ/L 7 MEQ/L Blood Urea Nitrogen 23 MG/DL 20 MG/DL Creatinine 1.42 MG/DL 1.30 MG/DL Estimat Glomerular Filtration 37 ML/MIN 41 ML/MIN Rate Random Glucose 100 MG/DL 94 MG/DL Calcium Level 9.0 MG/DL 8.5 MG/DL Total Bilirubin 0.5 MG/DL Aspartate Amino Transf 32 U/L (AST/SGOT) Alanine Aminotransferase 38 U/L (ALT/SGPT) Alkaline Phosphatase 107 U/L Total Protein 8.0 GM/DL Albumin 4.0 GM/DL Lipase 206 U/L Erythrocyte Sedimentation Rate 25 mm/hr Date/Time Procedure Status Source Growth 11/08/16 13:55 Urine Culture Received Urine Clean Catch Pending Physical Examination HEENT: Normocephalic; atraumatic; no jaundice. CHEST: CTA CARDIAC: RRR ABDOMEN: Soft, NONdistended, nontender; no hepatosplenomegaly; ileostomy with small amount liquid stool EXTREMITIES: No clubbing, cyanosis, or edema. SKIN: Normal; no rash; no jaundice. CERTIFIED MEDICAL ASST: No focal deficits; alert and oriented times three. (Marilyn Garcia SUSTAINABILITY MANAGER) Assessment and Plan Plan ASSESSMENT: - N/V, Abdominal pain with abnormal imaging. Pt with long hx of Crohns, s/p multiple surgeries for resection/abscess/fistulas, s/p complete colectomy with ileostomy 1983. She has not been on medications since that time. She is not followed by GI and reports that she last was evaluated with ileoscopy back in 2003, at which time she was told that she had active disease with ulcerations but she did not follow up as she did not want to go back on medications for her Crohn's. She reports that she's had intermittent symptoms with n/v, pain, decreased output that have resolved on her own. This episode started on Monday. It has improved and she has moved her bowels and no longer having pain or n/v. CT scan without IV contrast of the abdomen and pelvis and this revealed a prior complete colectomy and low anterior resection, diffusely and mildly dilated small bowel extending to the level of the ostomy. No obstructing mass or lesion is observed, tiny hiatal hernia, cholelithiasis with a distended gallbladder but no gallbladder wall thickening or pericholecystic fluid, gallbladder distention could relates an nothing by mouth status, 1 mm nonobstructing right renal calculus, prior left nephrectomy. She did not have any leukocytosis. She was evaluated by general surgery and they did not feel that she had a bowel obstruction. NPO. - Crohns disease, not on current tx. S/P total colectomy in 1983. Last ileoscopy 2003. PLAN: - Plan for EGD with ileoscopy in a.m. - Obtain consents - Clear liquid - Nothing by mouth after midnight - Solu-Medrol 40 mg IV daily - Protonix 40mg IV daily - Sedimentation rate - CBC, BMP in a.m. - Supportive care - Further recommendations to follow based on results of above - Pt seen and examined by Dr. Rucker and myself and this note is written on her behalf (Marilyn Garcia) Physician Comments seen, examined' agree with above (Loulou Rucker MD) Marilyn Garcia Nov 09, 2016 13:10 Loulou Rucker MD Nov 09, 2016 19:36
[2016-11-09] MEDS: SODIUM CHLOR 0.9% 1000 ML INJ 1,000 ML IV SCH (17:37)
[2016-11-09] MEDS ORDERED: METOPROLOL TARTRATE 25 MG TAB PO PRN (18:15)
[2016-11-09] MEDS: SODIUM CHLORID 0.9% 500 ML IV SCH (18:15)
[2016-11-09] MEDS ORDERED: INSULIN HUMAN REGULAR 1,000 UNITS/10 ML VIAL SQ PRN (18:15)
[2016-11-09] MEDS: LACTATED RINGER'S 1000 ML IV SCH (18:15)
--- NOTE | 2016-11-09 22:18 | HHI.PR ---
Subjective Subjective Notes Feels ok today; no emesis or nausea. Objective Vitals/I&O Vital Signs Date Time Temp Pulse Resp B/P Pulse Ox O2 Delivery O2 Flow Rate FiO2 11/09/16 20:00 98.6 63 18 112/76 97 11/08/16 21:03 Room Air Labs Laboratory Tests Test 11/09/16 11/09/16 05:10 11:50 White Blood Count 3.9 Red Blood Count 3.96 Hemoglobin 11.6 Hematocrit 35.2 Mean Corpuscular Volume 88.9 Mean Corpuscular Hemoglobin 29.4 Mean Corpuscular Hemoglobin 33.1 Concent Red Cell Distribution Width 13.3 Platelet Count 209 Mean Platelet Volume 7.5 Neutrophils (%) (Auto) 60.7 Lymphocytes (%) (Auto) 26.9 Monocytes (%) (Auto) 9.7 Eosinophils (%) (Auto) 2.3 Basophils (%) (Auto) 0.4 Neutrophils # (Auto) 2.4 Lymphocytes # (Auto) 1.1 Monocytes # (Auto) 0.4 Eosinophils # (Auto) 0.1 Basophils # (Auto) 0.0 CBC Comment DIFF FINAL Differential Comment Erythrocyte Sedimentation Rate 25 Sodium Level 143 Potassium Level 3.7 Chloride Level 112 Carbon Dioxide Level 24.1 Anion Gap 7 Blood Urea Nitrogen 20 Creatinine 1.30 Estimat Glomerular Filtration 41 Rate Random Glucose 94 Calcium Level 8.5 Nasal Screen MRSA (PCR) NEGATIVE Date/Time Procedure Status Source Growth 11/08/16 13:55 Urine Culture - Preliminary Resulted Urine Clean Catch 10-50,000 CFU/ML MIXED GRAM POSITIVE ... Lungs: Clear Abdomen: Non-distended, Non-tender A/P Assessment and Plan Crohn's dz without obstruction; lactulose working. Plan: GI svc to perform endoscopy Robinson Hinojosa MD Nov 09, 2016 22:18
[2016-11-10] VITALS (8 sets, daily range): BP systolic 103–125; BP diastolic 55–73; PULSE 61–70; RESP 16–20; TEMP 96.9–98.6; O2SAT 95–97
[2016-11-10] MEDS: SODIUM CHLOR 0.9% 1000 ML INJ 1,000 ML IV SCH ×3 (01:53→21:53)
[2016-11-10 04:39] LABS: AUTOMATED NEUTROPHIL # 1.6 TH/MM3 (1.8-7.7); BASOPHIL % 0.4 % (0.0-2.0); EOSINOPHIL # 0.2 TH/MM3 (0-0.4); EOSINOPHIL % 6.3 % (0.0-4.0); HEMATOCRIT 32.4 % (35.0-46.0); HEMO FLAGS DIFF FINAL; LYMPH % 35.6 % (9.0-44.0); LYMPHOCYTE # 1.2 TH/MM3 (1.0-4.8); MEAN CELL VOLUME 88.5 FL (80.0-100.0); MEAN CORPUSCULAR HGB CONC 33.9 % (32.0-36.0); NEUT % 47.7 % (16.0-70.0); PLATELET COUNT 178 TH/MM3 (150-450); RED BLOOD COUNT 3.66 MIL/MM3 (4.00-5.30); RED CELL DISTRIBUTION WIDTH 13.7 % (11.6-17.2); WHITE BLOOD COUNT 3.3 TH/MM3 (4.0-11.0)
[2016-11-10 05:05] LABS: BICARBONATE 25.7 MEQ/L (21.0-32.0); POTASSIUM 3.8 MEQ/L (3.5-5.1)
[2016-11-10] MEDS: SODIUM CHLORID 0.9% 500 ML IV SCH (07:25)
[2016-11-10] MEDS: SODIUM CHLORIDE 0.9% FLUSH 5 ML FLUSH FLUSH SCH ×2 (07:25→19:59)
--- NOTE | 2016-11-10 11:45 | HHI.PR ---
Subjective Remarks Follow-up abdominal pain, chronic kidney disease. Patient states that she feels better. Going for EGD/ileoscopy today. Now passing stool through ileostomy. Abdominal pain improved. Objective Vitals Vital Signs Date Time Temp Pulse Resp B/P Pulse Ox O2 Delivery O2 Flow Rate FiO2 11/10/16 08:00 96.9 67 18 108/73 96 11/10/16 04:00 98.6 65 16 104/55 96 11/10/16 00:00 97.6 61 17 116/56 96 11/09/16 23:14 18 11/09/16 20:00 98.6 63 18 112/76 97 11/09/16 19:51 61 11/09/16 16:00 97.8 67 20 115/62 96 11/09/16 11:52 98.5 67 20 108/58 96 I/O 11/09/16 11/09/16 11/09/16 11/10/16 11/10/16 11/10/16 07:00 15:00 23:00 07:00 15:00 23:00 Intake Total 896 ml 900 ml 570 ml 737 ml Output Total 300 ml 550 ml 0 ml Balance 596 ml 350 ml 570 ml 737 ml Intake Oral 0 ml 0 ml 240 ml 0 ml IV Total 896 ml 900 ml 330 ml 737 ml Output Urine Total 300 ml 550 ml Stool Total 0 ml # Voids 2 2 # Bowel Movements 0 0 0 0 Result Diagram: 11/10/16 0425 11/10/16 0425 Imaging Last Impressions Abdomen X-Ray 11/09/16 0600 Signed Impressions: Service Date/Time: Wednesday, November 09, 2016 08:05 - CONCLUSION: There is no radiographic contrast evident. Adria Hodgson MD FACR Abdomen/Pelvis CT 11/08/16 0000 Signed Impressions: Service Date/Time: Tuesday, November 08, 2016 18:35 - CONCLUSION: 1. Prior complete colectomy and low anterior resection. 2. Diffusely and mildly dilated small bowel extending to the level of the ostomy. No obstructing mass or lesion observed. 3. Tiny hiatal hernia. 4. Cholelithiasis with a distended gallbladder but no gallbladder wall thickening or pericholecystic fluid. The gallbladder distention could relate to an n.p.o. status. 5. 1 mm nonobstructing right renal calculus. 6. Prior left nephrectomy. Jefry Whipple Jr., MD Objective Remarks General: No acute distress. Heart: Regular rate and rhythm. No murmur. Lungs: Clear to auscultation bilaterally. No wheezes, rales, or rhonchi. Breathing is nonlabored. Abdomen: Soft, nontender, nondistended. Ileostomy. Extremities: No lower extremity edema. Psych: Alert and oriented. Urinary Catheter: No Vascular Central Line Catheter: No A/P Problem List: (1) Abdominal pain ICD Code: R10.9 Status: Acute (2) Small bowel obstruction ICD Code: K56.69 Status: Acute (3) Crohn's disease ICD Code: K50.90 Status: Chronic (4) Solitary right kidney ICD Code: Q60.2 Status: Chronic (5) Impaired renal function ICD Code: N28.9 Status: Chronic Assessment and Plan 1. Abdominal pain: Possibly secondary to untreated Crohn's disease. Appreciate GI and general surgery recommendations. EGD/ileoscopy today per GI. 2. Chronic kidney disease: Patient is status post donor nephrectomy. Monitor BUN and creatinine. Avoid nephrotoxins. 3. DVT prophylaxis: SCDs. Daryl Claire MD Nov 10, 2016 11:45
[2016-11-10] MEDS: LACTATED RINGER'S 1000 ML IV SCH (12:24)
[2016-11-10] MEDS ORDERED: PROPOFOL 200 MG/20 ML AMP IV ONE (15:36)
--- NOTE | 2016-11-10 17:57 | EKG ---
Date Performed: 11/10/2016 Time Performed: 10:25:50 PTAGE: 66 years EKG: SINUS BRADYCARDIA When compared to previous tracing, sinus rate is slightly slower. BORDERL INE ECG PREVIOUS TRACING : 12/16/2012 16.13 DOCTOR: David Hartmann Interpretating Date/Time 11/10/2016 17:56:29
--- NOTE | 2016-11-10 19:24 | HHI.PR ---
Subjective Subjective Notes No pain, nausea, or emesis. Objective Vitals/I&O Vital Signs Date Time Temp Pulse Resp B/P Pulse Ox O2 Delivery O2 Flow Rate FiO2 11/10/16 16:00 98.0 70 18 125/68 95 11/08/16 21:03 Room Air Labs Laboratory Tests Test 11/10/16 04:25 White Blood Count 3.3 Red Blood Count 3.66 Hemoglobin 11.0 Hematocrit 32.4 Mean Corpuscular Volume 88.5 Mean Corpuscular Hemoglobin 30.0 Mean Corpuscular Hemoglobin 33.9 Concent Red Cell Distribution Width 13.7 Platelet Count 178 Mean Platelet Volume 7.3 Neutrophils (%) (Auto) 47.7 Lymphocytes (%) (Auto) 35.6 Monocytes (%) (Auto) 10.0 Eosinophils (%) (Auto) 6.3 Basophils (%) (Auto) 0.4 Neutrophils # (Auto) 1.6 Lymphocytes # (Auto) 1.2 Monocytes # (Auto) 0.3 Eosinophils # (Auto) 0.2 Basophils # (Auto) 0.0 CBC Comment DIFF FINAL Differential Comment Sodium Level 141 Potassium Level 3.8 Chloride Level 109 Carbon Dioxide Level 25.7 Anion Gap 6 Blood Urea Nitrogen 16 Creatinine 1.26 Estimat Glomerular Filtration 42 Rate Random Glucose 88 Calcium Level 8.1 Date/Time Procedure Status Source Growth 11/08/16 13:55 Urine Culture - Final Complete Urine Clean Catch 10-50,000 CFU/ML MIXED GRAM POSITIVE ... Lungs: Clear Abdomen: Non-distended Narrative Exam Ileostomy functioning. A/P Assessment and Plan Crohn's dz; no evidence active disease seen by endoscopy. Plan: Start diet. Will sign off tomorrow if tolerates diet. Robinson Hinojosa MD Nov 10, 2016 19:24
[2016-11-10] MEDS: ACETAMINOPHEN 325 MG TAB PO PRN (22:34)
[2016-11-11] VITALS: BP 100/64; PULSE 70; RESP 18; TEMP 98; O2SAT 98
[2016-11-11 04:00] VITALS: BP 108/70; PULSE 69; RESP 20; TEMP 97.6; O2SAT 96
[2016-11-11 05:34] LABS: AUTOMATED NEUTROPHIL # 1.9 TH/MM3 (1.8-7.7); BASOPHIL % 0.5 % (0.0-2.0); EOSINOPHIL # 0.2 TH/MM3 (0-0.4); EOSINOPHIL % 4.7 % (0.0-4.0); HEMATOCRIT 32.1 % (35.0-46.0); HEMO FLAGS DIFF FINAL; LYMPHOCYTE # 1.1 TH/MM3 (1.0-4.8); MEAN CELL VOLUME 88.5 FL (80.0-100.0); MEAN CORPUSCULAR HEMOGLOBIN 29.8 PG (27.0-34.0); MEAN CORPUSCULAR HGB CONC 33.7 % (32.0-36.0); MONO % 9.1 % (0.0-8.0); NEUT % 54.7 % (16.0-70.0); PLATELET COUNT 185 TH/MM3 (150-450); RED BLOOD COUNT 3.63 MIL/MM3 (4.00-5.30); RED CELL DISTRIBUTION WIDTH 13.6 % (11.6-17.2); WHITE BLOOD COUNT 3.5 TH/MM3 (4.0-11.0)
[2016-11-11 05:55] LABS: BICARBONATE 23.3 MEQ/L (21.0-32.0); POTASSIUM 3.7 MEQ/L (3.5-5.1)
[2016-11-11] MEDS: LACTATED RINGER'S 1000 ML IV SCH (07:51)
[2016-11-11] MEDS: SODIUM CHLORIDE 0.9% FLUSH 5 ML FLUSH FLUSH SCH (07:51)
[2016-11-11] MEDS: SODIUM CHLOR 0.9% 1000 ML INJ 1,000 ML IV SCH (07:51)
[2016-11-11 08:10] VITALS: BP 107/69; PULSE 58; RESP 16; TEMP 97.4; O2SAT 97
--- NOTE | 2016-11-11 09:45 | HHI.PR ---
Subjective Remarks Follow up SBO, CKD. No complaints at this time. Denies abdominal pain, nausea, vomiting. Wants to go home. Objective Vitals Vital Signs Date Time Temp Pulse Resp B/P Pulse Ox O2 Delivery O2 Flow Rate FiO2 11/11/16 08:10 97.4 58 16 107/69 97 11/11/16 04:00 97.6 69 20 108/70 96 11/11/16 00:00 98.0 70 18 100/64 98 11/10/16 23:34 20 11/10/16 21:59 63 11/10/16 20:00 97.8 67 20 103/65 97 11/10/16 16:00 98.0 70 18 125/68 95 11/10/16 15:40 67 16 115/72 97 11/10/16 15:28 69 16 135/58 98 11/10/16 15:20 98.0 67 16 120/65 94 11/10/16 14:18 97.3 68 19 110/72 96 11/10/16 12:00 97.3 68 19 110/72 96 I/O 11/10/16 11/10/16 11/10/16 11/11/16 11/11/16 11/11/16 07:00 15:00 23:00 07:00 15:00 23:00 Intake Total 737 ml 935 ml 1042 ml 1025 ml Output Total 0 ml 500 ml 500 ml Balance 737 ml 935 ml 542 ml 525 ml Intake Oral 0 ml 0 ml 480 ml 240 ml IV Total 737 ml 935 ml 462 ml 785 ml Other 100 ml Output Urine Total 500 ml 500 ml Stool Total 0 ml # Voids 2 2 # Bowel Movements 0 0 0 Result Diagram: 11/11/16 0456 11/11/16 0456 Imaging Last Impressions Abdomen X-Ray 11/09/16 0600 Signed Impressions: Service Date/Time: Wednesday, November 09, 2016 08:05 - CONCLUSION: There is no radiographic contrast evident. Adria Hodgson MD FACR Abdomen/Pelvis CT 11/08/16 0000 Signed Impressions: Service Date/Time: Tuesday, November 08, 2016 18:35 - CONCLUSION: 1. Prior complete colectomy and low anterior resection. 2. Diffusely and mildly dilated small bowel extending to the level of the ostomy. No obstructing mass or lesion observed. 3. Tiny hiatal hernia. 4. Cholelithiasis with a distended gallbladder but no gallbladder wall thickening or pericholecystic fluid. The gallbladder distention could relate to an n.p.o. status. 5. 1 mm nonobstructing right renal calculus. 6. Prior left nephrectomy. Jefry Whipple Jr., MD Objective Remarks General: No acute distress. Heart: Regular rate and rhythm. No murmur. Lungs: Clear to auscultation bilaterally. No wheezes, rales, or rhonchi. Breathing is nonlabored. Abdomen: Soft, nontender, nondistended. Ileostomy. Extremities: No lower extremity edema. Psych: Alert and oriented. 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 Abdominal pain: Secondary to SBO. Appreciate GI and general surgery recommendations. EGD/ileoscopy showed no evidence of active Crohn's disease. Cleared for discharge by general surgery. 2. Chronic kidney disease: Patient is status post donor nephrectomy. Monitor BUN and creatinine. Avoid nephrotoxins. Creatinine trending down. 3. DVT prophylaxis: SCDs. Discharge Planning Discharge home when cleared by GI, possibly later today. Daryl Claire MD Nov 11, 2016 09:45
--- NOTE | 2016-11-11 10:24 | HHI.PR ---
Subjective Subjective Notes Did well with regular dinner last night and breakfast today; no pain or nausea. Objective Vitals/I&O Vital Signs Date Time Temp Pulse Resp B/P Pulse Ox O2 Delivery O2 Flow Rate FiO2 11/11/16 08:10 97.4 58 16 107/69 97 11/08/16 21:03 Room Air Labs Laboratory Tests Test 11/11/16 04:56 White Blood Count 3.5 Red Blood Count 3.63 Hemoglobin 10.8 Hematocrit 32.1 Mean Corpuscular Volume 88.5 Mean Corpuscular Hemoglobin 29.8 Mean Corpuscular Hemoglobin 33.7 Concent Red Cell Distribution Width 13.6 Platelet Count 185 Mean Platelet Volume 7.5 Neutrophils (%) (Auto) 54.7 Lymphocytes (%) (Auto) 31.0 Monocytes (%) (Auto) 9.1 Eosinophils (%) (Auto) 4.7 Basophils (%) (Auto) 0.5 Neutrophils # (Auto) 1.9 Lymphocytes # (Auto) 1.1 Monocytes # (Auto) 0.3 Eosinophils # (Auto) 0.2 Basophils # (Auto) 0.0 CBC Comment DIFF FINAL Differential Comment Sodium Level 141 Potassium Level 3.7 Chloride Level 111 Carbon Dioxide Level 23.3 Anion Gap 7 Blood Urea Nitrogen 16 Creatinine 1.13 Estimat Glomerular Filtration 48 Rate Random Glucose 77 Calcium Level 8.1 Date/Time Procedure Status Source Growth 11/08/16 13:55 Urine Culture - Final Complete Urine Clean Catch 10-50,000 CFU/ML MIXED GRAM POSITIVE ... Lungs: Clear Abdomen: Non-distended, Non-tender Narrative Exam Ileostomy functioning. A/P Assessment and Plan Crohn's dz; no evidence active disease seen by endoscopy. Tolerating diet. Plan: Doing well; ok for D/C from gen surgery stdpt Will sign off Robinson Hinojosa MD Nov 11, 2016 10:24
--- NOTE | 2016-11-11 10:31 | HHI.DCPOC ---
Discharge Care Plan Diagnosis: (1) Crohn's disease (2) Small bowel obstruction (3) Abdominal pain (4) Impaired renal function (5) Solitary right kidney Goals to Promote Your Health * To prevent worsening of your condition and complications * To maintain your health at the optimal level Directions to Meet Your Goals Take your medications as prescribed Follow your dietary instruction Follow activity as directed Keep your appointments as scheduled Take your immunizations and boosters as scheduled If your symptoms worsen call your PCP, if no PCP go to Urgent Care Center or Emergency Room Smoking is Dangerous to Your Health. Avoid second hand smoke Call the 24-hour hour crisis hotline for domestic abuse at Daryl Claire MD Nov 11, 2016 10:31
--- NOTE | 2016-11-11 14:19 | HHI.DS ---
cc: Hillary Diaz MD Discharge Summary Admission Date Nov 08, 2016 at 19:54 Discharge Date: Nov 11, 2016 Admitting Diagnosis SBO (1) Abdominal pain ICD Code: R10.9 (2) Small bowel obstruction ICD Code: K56.69 (3) Crohn's disease ICD Code: K50.90 (4) Solitary right kidney ICD Code: Q60.2 (5) Impaired renal function ICD Code: N28.9 Procedures 11/10/16 EGD, ileoscopy Brief History - From Admission Mrs. Reich is a 66 year old female with a past medical history of Crohns disease with ileostomy in 1983 and donor nephrectomy presented to the ER on 11/08 complaining of abdominal pain 1 day with vomiting. The patient relates her abdominal pain as occurring around the ileostomy and feeling similar to her prior bowel obstruction. She was seen by Dr. Hinojosa who does not recommend surgical intervention and opines that she does not have a small bowel obstruction. CT abdomen and pelvis without IV contrast shows prior complete colectomy and low anterior resection. Diffusely and mildly dilated small bowel extended to the level of the ostomy. No obstructing mass or lesion observed. Tiny hiatal hernia. Cholelithiasis with a distended gallbladder but no gallbladder wall thickening or pericholecystic fluid. Gallbladder distention might relate to nothing by mouth status. 1 mm nonobstructing right renal calculus. Prior left nephrectomy. CBC is unremarkable. BUN elevated at 23, creatinine elevated at 1.42, estimated GFR 37. Kidney function similar to hospital visit on 09/04/15. Urinalysis slightly abnormal with culture indicated. The patient is seen in her hospital room where she reports that nothing was coming out of her ileostomy stoma for 24 hours. She states she was having some severe pain but denies any vomiting and reports symptoms have resolved and ostomy is currently working with good output. She denies any fever, syncope, chest pain, shortness of breath, blood in stool, dark stool, hematuria, or dysuria. Her last hospitalization for Crohn's disease was in 1985. She denies any history of hypertension, diabetes mellitus, heart problems, breathing problems, liver or kidney problems, seizures, thyroid dysfunction, or cancer. She denies any problems with blood clots such as DVT, PE, or CVA. . CBC/BMP: 11/11/16 0456 11/11/16 0456 Significant Findings Laboratory Tests Test 11/09/16 11/10/16 11/11/16 05:10 04:25 04:56 White Blood Count 3.9 TH/MM3 3.3 TH/MM3 3.5 TH/MM3 (4.0-11.0) (4.0-11.0) (4.0-11.0) Red Blood Count 3.96 MIL/MM3 3.66 MIL/MM3 3.63 MIL/MM3 (4.00-5.30) (4.00-5.30) (4.00-5.30) Monocytes (%) (Auto) 9.7 % (0.0-8.0) 10.0 % 9.1 % (0.0-8.0) (0.0-8.0) Chloride Level 112 MEQ/L 109 MEQ/L 111 MEQ/L (98-107) (98-107) (98-107) Blood Urea Nitrogen 20 MG/DL (7-18) Creatinine 1.30 MG/DL 1.26 MG/DL 1.13 MG/DL (0.50-1.00) (0.50-1.00) (0.50-1.00) Estimat Glomerular Filtration 41 ML/MIN (>89) 42 ML/MIN (>89) 48 ML/MIN (>89) Rate Hemoglobin 11.0 GM/DL 10.8 GM/DL (11.6-15.3) (11.6-15.3) Hematocrit 32.4 % 32.1 % (35.0-46.0) (35.0-46.0) Eosinophils (%) (Auto) 6.3 % (0.0-4.0) 4.7 % (0.0-4.0) Neutrophils # (Auto) 1.6 TH/MM3 (1.8-7.7) Calcium Level 8.1 MG/DL 8.1 MG/DL (8.5-10.1) (8.5-10.1) Imaging Last Impressions Abdomen X-Ray 11/09/16 0600 Signed Impressions: Service Date/Time: Wednesday, November 09, 2016 08:05 - CONCLUSION: There is no radiographic contrast evident. Adria Hodgson MD FACR Abdomen/Pelvis CT 11/08/16 0000 Signed Impressions: Service Date/Time: Tuesday, November 08, 2016 18:35 - CONCLUSION: 1. Prior complete colectomy and low anterior resection. 2. Diffusely and mildly dilated small bowel extending to the level of the ostomy. No obstructing mass or lesion observed. 3. Tiny hiatal hernia. 4. Cholelithiasis with a distended gallbladder but no gallbladder wall thickening or pericholecystic fluid. The gallbladder distention could relate to an n.p.o. status. 5. 1 mm nonobstructing right renal calculus. 6. Prior left nephrectomy. Jefry Whipple Jr., MD PE at Discharge General: No acute distress. Heart: Regular rate and rhythm. No murmur. Lungs: Clear to auscultation bilaterally. No wheezes, rales, or rhonchi. Breathing is nonlabored. Abdomen: Soft, nontender, nondistended. Ileostomy. Extremities: No lower extremity edema. Psych: Alert and oriented. Hospital Course The patient was admitted for further evaluation of abdominal pain. She was evaluated by general surgery for possible small bowel obstruction. Gastroenterology was consulted for possible Crohn's disease flare. Patient had EGD and ileoscopy, which were unremarkable. Her symptoms improved. She began passing stool that was normal. She had no bleeding. She was cleared for discharge by gastroenterology and general surgery. She was felt to be stable for discharge home. Pt Condition on Discharge: Stable Discharge Disposition: Discharge Home Discharge Time: <= 30 minutes Discharge Instructions DIET: Follow Instructions for: Heart Healthy Diet Activities you can perform: Regular-No Restrictions Follow up Referrals: Gastroenterology - 1 Week with Loulou Rucker MD PCP Follow-up - 2 Weeks Continued Medications: Fexofenadine (Bhavya Allergy) 60 Mg Tab 60 MG PO prn Allergy Management #60 Ref 0 TAB Daryl Claire MD Nov 11, 2016 14:19
[2016-11-11] MEDS ORDERED: PANT40TA3 PO (15:19)
== END 2016-11-11 15:44 | disposition home or self-care (01) | DRG 389 ==
LOC: NEPC 12:50 → NEDA 19:54 → N07A 22:46
PROVIDERS: ADMIT Family Medicine; ATTEND Family Medicine
PROC: 0DB58ZX Excision of Esophagus, Via Natural or Artificial Opening Endoscopic, Diagnostic (ICD-10-PCS; 2016-11-10)
PROC: 0DB98ZX Excision of Duodenum, Via Natural or Artificial Opening Endoscopic, Diagnostic (ICD-10-PCS; principal; 2016-11-10 15:07)
PROC: 0DB68ZX Excision of Stomach, Via Natural or Artificial Opening Endoscopic, Diagnostic (ICD-10-PCS; 2016-11-10 15:07)
DX: K56.60 Unspecified intestinal obstruction (principal); K50.90 Crohn's disease, unspecified, without complications; N20.0 Calculus of kidney; K29.70 Gastritis, unspecified, without bleeding; K20.9 Esophagitis, unspecified; K44.9 Diaphragmatic hernia without obstruction or gangrene; K80.20 Calculus of gallbladder without cholecystitis without obstruction; Z90.5 Acquired absence of kidney; N18.9 Chronic kidney disease, unspecified
CPT/HCPCS: 74000; 74020; 74176; 80048; 80053; 81001; 83690; 85025; 85610; 85652; 85730; 87086; 87641; 88305; 88312; 93005; 96361; 96365; 96375; J0696; J2405; J2765; J7030

== ENCOUNTER → 2018-02-23 | Outpatient (CLI) | payer MEDICARE, OTHER ==
[~2018-02-23] MED LIST changes: -ALL220TA PO; +PANT40TA3 PO; -TAMS0.4C67 PO
[2018-02-23 11:22] LABS: CHOLESTEROL/ HDL RATIO 2.74 RATIO; DIRECT BILIRUBIN ADULT 0.1 MG/DL (0.0-0.2); HDL CHOLESTEROL 51.8 MG/DL (40.0-60.0); INDIRECT BILIRUBIN 0.4 MG/DL (0.0-0.8); TOTAL BILIRUBIN ADULT 0.5 MG/DL (0.2-1.0); TOTAL PROTEIN 8.2 GM/DL (6.4-8.2)
== END ==
LOC: PLAB 07:57
PROVIDERS: ATTEND Family Medicine
DX: E78.2 Mixed hyperlipidemia (principal); N18.3 Chronic kidney disease, stage 3 (moderate)
CPT/HCPCS: 36415; 80061; 80076

== ENCOUNTER → 2018-03-09 | Outpatient (CLI) | payer MEDICARE, OTHER ==
[2018-03-16 15:53] LABS: ALK PHOS BONE (ISOENZYMES) 33 % (28-66); ALK PHOS INTESTINE (ISOENZYME) 12 % (1-24); ALK PHOS LIVER (ISOENZYME) 55 % (25-69); ALK PHOS PLACENTAL ISOENZYME 0 % (0)
== END ==
LOC: PLAB 10:12
PROVIDERS: ATTEND Family Medicine
DX: R74.8 Abnormal levels of other serum enzymes (principal)
CPT/HCPCS: 36415; 84080